=== PATIENT | female | born 1990 | race Caucasian/White ===

== ENCOUNTER 2016-04-04 19:35 | Emergency (ER) | payer OTHER ==
[2016-04-04 20:10] VITALS: BP 119/57; PULSE 69; TEMP 97.9; BMI 23.5
--- NOTE | 2016-04-04 20:18 | PDOC ---
History of Present Illness - General History Source: Patient Exam Limitations: No Limitations - History of Present Illness Initial Comments: 04/04/16 20:33 Patient is a 26 year old female, , with significant past medical history of diverticulosis with diverticulitis who presents to the ED with nausea and vomiting for 1 week and positive home test. Patient also reports suprapubic pain that is sharp in nature. Patient notes that her LMP was . She She denies fever, chills, cough, diarrhea, constipation, headache, chest pain or SOB. PCP - Dr. Fagan <Kym Soria - Last Filed: 04/05/16 00:00> <Rosario Lubin - Last Filed: 04/06/16 01:48> - General Chief Complaint: Pain, Acute Stated Complaint: ABDOMINAL PAIN Time Seen by Provider: 04/04/16 20:18 Past History <Kym Soria - Last Filed: 04/05/16 00:00> - Past Medical History GI Disorders: Yes (DIVERTICULOSIS) - Surgical History Abdominal Surgery: Yes - Immunization History Immunization Up to Date: Yes - Psycho/Social/Smoking Cessation Hx Anxiety: No Suicidal Ideation: No Smoking History: Never smoked Have you smoked in the past 12 months: Yes Number of Cigarettes Smoked Daily: 0 If you are a former smoker, when did you quit?: 3 DAYS AGO Information on smoking cessation initiated: No Hx Alcohol Use: No Drug/Substance Use Hx: No Substance Use Type: None <Rosario Lubin - Last Filed: 04/06/16 01:48> - Past Medical History Allergies/Adverse Reactions: Allergies Allergy/AdvReac Type Severity Reaction Status Date / Time No Known Allergies Allergy Verified 04/04/16 20:03 Home Medications: Ambulatory Orders NK [No Known Home Medication] 04/04/16 Review of Systems - Review of Systems Able to Perform ROS?: Yes Comments:: 04/04/16 20:33 CONSTITUTIONAL: Absent: fever, no chills, no fatigue EYES: Absent: visual changes ENT: Absent: ear pain, no sore throat CARDIOVASCULAR: Absent: chest pain, no palpitations RESPIRATORY: Absent: cough, no SOB GI: Present: abdominal pain, nausea, vomiting Absent: no constipation, no diarrhea GENITOURINARY: Absent: dysuria, no frequency, no hematuria MUSCULOSKELETAL: Absent: back pain, no arthralgia, no myalgia SKIN: Absent: rash NEURO: Absent: headache <Kym Soria - Last Filed: 04/05/16 00:00> *Physical Exam - Vital Signs Last Vital Signs Temp Pulse Resp BP Pulse Ox 97.9 F 69 18 119/57 100 04/04/16 20:04 04/04/16 20:04 04/04/16 20:04 04/04/16 20:04 04/04/16 20:04 - Physical Exam Comments: 04/04/16 20:34 GENERAL: Well-appearing, well-nourished. No apparent distress. HEENT: Normocephalic, atraumatic. PERRL, EOM intact. CARDIOVASCULAR: Normal S1, S2. Regular rate and rhythm. PULMONARY: Clear to auscultation bilaterally. ABDOMEN: +suprapubic tenderness. Soft, non-distended. EXTREMITIES: Normal ROM in all four extremities. No gross deformities. SKIN: Warm, dry. No rash NEUROLOGICAL: No focal neurological deficits. <Kym Soria - Last Filed: 04/05/16 00:00> - Vital Signs Last Vital Signs Temp Pulse Resp BP Pulse Ox 97.9 F 69 18 119/57 100 04/04/16 20:04 04/04/16 20:04 04/04/16 20:04 04/04/16 20:04 04/04/16 20:04 <Rosario Lubin - Last Filed: 04/06/16 01:48> ED Treatment Course - LABORATORY CBC & Chemistry Diagram: 04/04/16 20:57 04/04/16 20:57 - RADIOLOGY Radiology Studies Ordered: 04/05/16 00:00 EXAM: Ultrasound first trimester and pelvic duplex FINDINGS: Ultrasound :Uterus is anteverted and measures 9.7centimeters in length. The endometrium is 8millimeters in thickness which is normal. No identified. The right ovary measures 3.0centimeters in length, appears normal and demonstrates normal flow. Left ovary measures 2.8centimeters in length appears normal demonstrates normal flow. There is no significant free fluid. Pelvic duplex: There is normal arterial and venous flow in both ovaries. IMPRESSION: Normal exam without an IUP identified. Differential diagnosis includes early normal , miscarriage andectopic , which should be further evaluated with followup sonography and correlation to hCG levels. <Kym Soria - Last Filed: 04/05/16 00:00> - LABORATORY CBC & Chemistry Diagram: 04/04/16 20:57 04/04/16 20:57 <Rosario Lubin - Last Filed: 04/06/16 01:48> Medical Decision Making - Medical Decision Making 04/05/16 01:17 26-year-old female presents because of pelvic pain and reports a positive home test -the pt had been seen in our ER on Feb 14 2016 and at that time had a negative test -she denies any vaginal bleeding -her LMP was Mar 01 04/05/16 01:20 her bhcg was about 740 -her transvagianl ultrasound showed normal ovaries but did not see a IUP -discussed w pt concern for an ectopic and told her she needed to repeat beta-hCG in 48 hours and have a repeat ultrasound IMP- early IUP,ectopic preg 04/05/16 01:22 04/06/16 01:47 <Rosario Lubin - Last Filed: 04/06/16 01:48> *DC/Admit/Observation/Transfer - Attestations Scribe Attestion: 04/04/16 20:35 Documentation prepared by LANA Bartholomew, acting as medical office rep for Rosario Lubin MD. <Kym Soria - Last Filed: 04/05/16 00:00> <Rosario Lubin - Last Filed: 04/06/16 01:48> Diagnosis at time of Disposition: - Discharge Dispostion Disposition: HOME Condition at time of disposition: Stable - Referrals Referrals: Sameera Fagan [Primary Care Provider] - - Patient Instructions Printed Discharge Instructions: DI for -- Discomforts and Remedies, DI for Abdominal Pain -- Early Additional Instructions: THERE IS CONCERN FOR AN ECTOPIC SO YOU MUST RETURN ON TUESDAY FOR REPEAT BHCG AND PELVIC ULTRASOUND
[2016-04-04 21:01] LABS: BASOPHIL 1.3 % (0-2.0); EOSINOPHIL 1.2 % (0-4.5); MCH 27.9 pg (25.7-33.7); MCHC 32.5 g/dl (32.0-36.0); MEAN CELL VOLUME 85.8 fl (80-96); MEAN PLT VOLUME 7.6 fl (7.5-11.1); NEUTROPHILS 49.8 % (42.8-82.8); PLATELET COUNT 275 K/MM3 (134-434); RDW 14.9 % (11.6-15.6); WHITE BLOOD COUNT 7.6 K/mm3 (4.0-10.0)
[2016-04-04 21:02] LABS: URINE APPEARANCE CLEAR; URINE BILIRUBIN NEGATIVE (NEGATIVE); URINE BLOOD NEGATIVE (NEGATIVE); URINE COLOR LTYELLOW; URINE GLUCOSE (UA) NEGATIVE (NEGATIVE); URINE KETONE NEGATIVE (NEGATIVE); URINE LEUK ESTERASE NEGATIVE (NEGATIVE); URINE NITRITE NEGATIVE (NEGATIVE); URINE PROTEIN NEGATIVE (NEGATIVE); URINE UROBILINOGEN NEGATIVE E.U./dl (0.2-1.0)
[2016-04-04 21:24] LABS: ALBUMIN 3.9 g/dl (3.4-5.0); ANION GAP 8 (8-16); BILIRUBIN,TOTAL 0.3 mg/dL (0.2-1.0); CO2 25 mmol/L (21-32); CREATININE 0.6 mg/dL (0.55-1.02); GLUCOSE,RANDOM 89 mg/dL (74-106); SGOT/AST 10 U/L (15-37); SGPT/ALT 22 U/L (12-78)
[2016-04-04 21:26] LABS: ALK PHOS 67 U/L (45-117)
[2016-04-04] MEDS ORDERED: SODIUM CHLORIDE 1,000 ML IV STA (21:50)
== END 2016-04-05 00:30 | disposition home or self-care (01) ==
LOC: JER 19:35
PROC: 3E0337Z Introduction of Electrolytic and Water Balance Substance into Peripheral Vein, Percutaneous Approach (ICD-10-PCS; principal; 2016-04-04)
DX: O26.891 Other specified pregnancy related conditions, first trimester (principal); R10.2 Pelvic and perineal pain; Z3A.00 Weeks of gestation of pregnancy not specified
CPT/HCPCS: 36415; 76817-TC; 80053; 81003; 84702; 84703; 85025; 96360; 99282-25

== ENCOUNTER 2016-04-06 10:40 | Emergency (ER) | payer OTHER ==
[2016-04-06 10:47] VITALS: BP 142/73; PULSE 80; TEMP 98; BMI 23.5
--- NOTE | 2016-04-06 11:53 | PDOC ---
History of Present Illness - General Chief Complaint: Pain Stated Complaint: PELVIC USS (RETURNING PATIENT) Time Seen by Provider: 04/06/16 11:49 History Source: Patient Exam Limitations: No Limitations - History of Present Illness Initial Comments: CHIEF COMPLAINT: 26 y/o female, with LMP 03/01/16 here for repeat beta and ultrasound. HISTORY OF PRESENT ILLNESS: The patient was seen on 04/04 in the main ER for abdominal pain. An ultrasound was performed but no confirmed and there was concern for ectopic. She was instructed to return today to have repeat blood work and ultrasound. THe patient denies abd pain, back pain, vaginal bleeding, abnormal vaginal discharge. Vital signs on arrival are within normal limits. REVIEW OF SYSTEMS: GENERAL/CONSTITUTIONAL: No fever/chills. No weakness. No weight change. HEAD, EYES, EARS, NOSE AND THROAT: No change in vision. No ear pain or discharge. No sore throat. GASTROINTESTINAL: No abd pain, nausea, vomiting, diarrhea. GENITOURINARY: No dysuria, frequency, or change in urination. No abnormal vaginal discharge or bleeding. MUSCULOSKELETAL: No joint or muscle swelling or pain. No neck or back pain. SKIN: No rash or easy bruising. NEUROLOGIC: No headache, vertigo, loss of consciousness, or loss of sensation. PHYSICAL EXAM: GENERAL: The patient is awake, alert, and fully oriented, in no acute distress. HEAD: Normal with no signs of trauma. EYES: Pupils equal, round and reactive to light, extraocular movements intact, sclera anicteric, conjunctiva clear. ABDOMINAL: No TTP. EXTREMITIES: Normal range of motion, no edema. NEUROLOGICAL: Normal speech, normal gait. PSYCH: Normal mood, normal affect. SKIN: Warm, Dry, normal turgor, no rashes or lesions noted. Past History - Past Medical History Allergies/Adverse Reactions: Allergies Allergy/AdvReac Type Severity Reaction Status Date / Time No Known Allergies Allergy Verified 04/06/16 10:43 Home Medications: Ambulatory Orders NK [No Known Home Medication] 04/04/16 GI Disorders: Yes (DIVERTICULOSIS) - Surgical History Abdominal Surgery: Yes - Immunization History Immunization Up to Date: Yes - Psycho/Social/Smoking Cessation Hx Anxiety: No Suicidal Ideation: No Smoking History: Never smoked Have you smoked in the past 12 months: Yes Number of Cigarettes Smoked Daily: 0 If you are a former smoker, when did you quit?: 3 DAYS AGO Information on smoking cessation initiated: Yes 'Breaking Loose' booklet given: 04/06/16 Hx Alcohol Use: No Drug/Substance Use Hx: No Substance Use Type: None *Physical Exam - Vital Signs Last Vital Signs Temp Pulse Resp BP Pulse Ox 98.0 F 80 18 142/73 100 04/06/16 10:44 04/06/16 10:44 04/06/16 10:44 04/06/16 10:44 04/06/16 10:44 Medical Decision Making - Medical Decision Making A/P: 26 y/o female here for repeat beta and ultrasound to confirm . Plan is as follows: 1. HCG 2. Transvaginal ultrasound. The hcg doubled from 756 to 1545 from 04/04 to 04/06. Transvaginal Ultrasound IMPRESSION: Tiny intrauterine gestational sac like structure with estimated gestational age of 4 weeks 6 days. No pole is identified. Correlation with serial quantitative serum beta-HCG and follow up ultrasound in 1 week is recommended. The patient was given all of her results and instructed to f/u with her BED OPERATOR, who she states she has an appointment with this Tuesday. The patient was instructed to return to the ER with any worsening or concerning symptoms. The patient verbalizes understanding of all instructions, has no further questions and is awaiting discharge. *DC/Admit/Observation/Transfer Diagnosis at time of Disposition: - Discharge Dispostion Disposition: HOME Condition at time of disposition: Good - Referrals Referrals: Sameera Fagan [Primary Care Provider] - - Patient Instructions Additional Instructions: Discharge Instructions: -Your beta hcg was 756 on 04/04/16 and 1545 on 04/06/16. -Your ultrasound showed a gestational sac -Please keep your scheduled follow up appointment for Tuesday -Return to the ER with any worsening or concerning symptoms.
== END 2016-04-06 15:00 | disposition home or self-care (01) ==
LOC: JERFT 10:40
DX: Z32.01 Encounter for pregnancy test, result positive (principal)
CPT/HCPCS: 36415; 76817-TC; 84702; 99281-25

== ENCOUNTER 2016-06-24 19:55 | Emergency (ER) | payer OTHER ==
[2016-06-24 20:06] VITALS: BP 139/76; PULSE 93; TEMP 98.2; BMI 25.0
--- NOTE | 2016-06-24 20:48 | PDOC ---
History of Present Illness - General History Source: Patient Exam Limitations: No Limitations - History of Present Illness Initial Comments: 06/24/16 20:51 The patient is a 26 year old female (17 weeks ) with significant past medical history of recent diagnose of diverticulitis (02/2016) who presents to the ED with 1 day of suprapubic pain. Patient reports nausea and vomiting x1 earlier today, however, she believes this is related to her morning sickness. No diarrhea. No vaginal bleeding or discharge. The patient denies fever, chills, cough, SOB, chest pain, and palpitations. The patient denies dysuria, hematuria, urgency, and frequency. Allergies: NKDA Social History: No alcohol, tobacco, or drug use reported. Past Surgical History: hernia repair PCP: Dr. Sameera Fagan <Mel Ramirez - Last Filed: 06/24/16 20:51> - General History Source: Patient <Rick Reynoso - Last Filed: 06/24/16 22:26> - General Chief Complaint: Pain Stated Complaint: STOMACH PAIN/17 WKS Time Seen by Provider: 06/24/16 20:34 Past History <Mel Ramirez - Last Filed: 06/24/16 20:51> - Past Medical History GI Disorders: Yes (DIVERTICULOSIS) - Surgical History Abdominal Surgery: Yes - Immunization History Immunization Up to Date: Yes - Psycho/Social/Smoking Cessation Hx Anxiety: No Suicidal Ideation: No Smoking History: Never smoked Have you smoked in the past 12 months: No Number of Cigarettes Smoked Daily: 0 If you are a former smoker, when did you quit?: 3 DAYS AGO Information on smoking cessation initiated: No 'Breaking Loose' booklet given: 04/06/16 Hx Alcohol Use: No Drug/Substance Use Hx: No Substance Use Type: None <Rick Reynoso - Last Filed: 06/24/16 22:26> - Past Medical History Allergies/Adverse Reactions: Allergies Allergy/AdvReac Type Severity Reaction Status Date / Time No Known Allergies Allergy Verified 06/24/16 20:03 Home Medications: Ambulatory Orders Cephalexin Monohydrate [Keflex -] 500 mg PO BID #14 capsule 06/24/16 Metoclopramide HCl [Reglan -] 10 mg PO TID #30 tablet 06/24/16 [id number]/Iron Fumarate/FA/Dss [ 19 Tablet] 1 each PO DAILY 06/24/16 Review of Systems - Review of Systems Able to Perform ROS?: Yes Comments:: 06/24/16 20:51 CONSTITUTIONAL: Absent: fever, no chills, no fatigue EYES: Absent: visual changes ENT: Absent: ear pain, no sore throat CARDIOVASCULAR: Absent: chest pain, no palpitations RESPIRATORY: Absent: cough, no SOB GI: +suprapubic tenderness, nausea, vomiting Absent: no constipation, no diarrhea GENITOURINARY: Absent: dysuria, no frequency, no hematuria MUSCULOSKELETAL: Absent: back pain, no arthralgia, no myalgia SKIN: Absent: rash NEURO: Absent: headache <Mel Raimrez - Last Filed: 06/24/16 20:51> *Physical Exam - Vital Signs Last Vital Signs Temp Pulse Resp BP Pulse Ox 98.2 F 93 H 14 139/76 98 06/24/16 20:04 06/24/16 20:04 06/24/16 20:04 06/24/16 20:04 06/24/16 20:04 - Physical Exam Comments: 06/24/16 20:52 GENERAL: Well-appearing, well-nourished. No apparent distress. HEENT: Normocephalic, atraumatic. PERRL, EOM intact. CARDIOVASCULAR: Normal S1, S2. Regular rate and rhythm. PULMONARY: Clear to auscultation bilaterally. ABDOMEN: Gravid, suprapubic tenderness. No rebound or guarding. EXTREMITIES: Normal ROM in all four extremities. No gross deformities. SKIN: Warm, dry. No rash NEUROLOGICAL: No focal neurological deficits. <Mel Ramirez - Last Filed: 06/24/16 20:51> - Vital Signs Last Vital Signs Temp Pulse Resp BP Pulse Ox 98.2 F 93 H 14 139/76 98 06/24/16 20:04 06/24/16 20:04 06/24/16 20:04 06/24/16 20:04 06/24/16 20:04 <Rick Reynoso - Last Filed: 06/24/16 22:26> ED Treatment Course - LABORATORY CBC & Chemistry Diagram: 06/24/16 20:30 06/24/16 20:30 <Mel Ramirez - Last Filed: 06/24/16 20:51> - LABORATORY CBC & Chemistry Diagram: 06/24/16 20:30 06/24/16 20:30 <Rick Reynoso - Last Filed: 06/24/16 22:26> Medical Decision Making - Medical Decision Making 06/24/16 22:25 Dr. Reynoso: The scribe's documentation has been prepared under my direction and personally reviewed by me in its entirery. I confirm that the note above accurately reflects all work, treatment, procedures, and medical decision making performed by me. Patient 16 which on ultrasound. Patient found to have UTI on urinalysis. 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 machine operator <Rick Reynoso - Last Filed: 06/24/16 22:26> *DC/Admit/Observation/Transfer - Attestations Scribe Attestion: 06/24/16 20:52 Documentation prepared by Mel Ramirez, acting as biomedical engineer for Rick Reynoso MD <Mel Ramirez - Last Filed: 06/24/16 20:51> - Discharge Dispostion Admit: No <Rick Reynoso - Last Filed: 06/24/16 22:26> Diagnosis at time of Disposition: Urinary tract infection, Diverticulitis - Discharge Dispostion Disposition: HOME Condition at time of disposition: Stable - Referrals Referrals: Sameera Fagan [Primary Care Provider] - - Patient Instructions Printed Discharge Instructions: DI for Urinary Tract Infection (UTI)
[2016-06-24 20:50] LABS: BASOPHIL 0.2 % (0-2.0); EOSINOPHIL 0.8 % (0-4.5); MCHC 33.4 g/dl (32.0-36.0); MEAN PLT VOLUME 7.1 fl (7.5-11.1); NEUTROPHILS 69.1 % (42.8-82.8); PLATELET COUNT 252 K/MM3 (134-434); RDW 14.1 % (11.6-15.6)
[2016-06-24 21:03] LABS: URINE APPEARANCE CLOUDY; URINE BILIRUBIN NEGATIVE (NEGATIVE); URINE BLOOD NEGATIVE (NEGATIVE); URINE COLOR LTYELLOW; URINE GLUCOSE (UA) NEGATIVE (NEGATIVE); URINE KETONE NEGATIVE (NEGATIVE); URINE NITRITE NEGATIVE (NEGATIVE); URINE PROTEIN NEGATIVE (NEGATIVE); URINE UROBILINOGEN NEGATIVE E.U./dl (0.2-1.0)
[2016-06-24 21:04] LABS: URINE LEUK ESTERASE 2+ (NEGATIVE)
[2016-06-24 21:06] LABS: URINE BACTERIA RARE /hpf (NONE SEEN); URINE HYALINE CAST 9 /lpf; URINE RBC 5 /hpf (0-3); URINE WBC 8 /hpf (3-5)
[2016-06-24 21:15] LABS: ALBUMIN 3.2 g/dl (3.4-5.0); ANION GAP 12 (8-16); BILIRUBIN,TOTAL 0.1 mg/dL (0.2-1.0); CALCIUM 8.8 mg/dL (8.5-10.1); CO2 23 mmol/L (21-32); COCKROFT - GAULT 198.7725; CREATININE 0.5 mg/dL (0.55-1.02); GLUCOSE,RANDOM 84 mg/dL (74-106); SGOT/AST 13 U/L (15-37); SGPT/ALT 17 U/L (12-78)
[2016-06-24 21:31] LABS: ALK PHOS 65 U/L (45-117)
[2016-06-24] MEDS ORDERED: METOCLOPRAMIDE HCL 10 MG TABLET (FP) PO ONE ×2 (22:25→22:52)
[2016-06-24] MEDS ORDERED: CEPHALEXIN MONOHYDRATE 500 MG CAPSULE (UD) PO ONE (22:25)
[2016-06-24] MEDS ORDERED: CEPHALEXIN MONOHYDRATE 250 MG CAPSULE (FP) ONE (22:51)
== END 2016-06-24 22:59 | disposition home or self-care (01) ==
LOC: JER 19:55 → JERFT 19:55 → JER 22:59
DX: O23.32 Infections of other parts of urinary tract in pregnancy, second trimester (principal); Z3A.17 17 weeks gestation of pregnancy
CPT/HCPCS: 36415; 76815-TC; 80053; 81003; 81015; 84702; 84703; 85025; 87086; 99281-25; 99284-25

== ENCOUNTER 2016-12-06 12:50 | Inpatient (IN) | payer OTHER ==
[2016-12-06] MEDS ORDERED: CITRIC ACID/SODIUM CITRATE 30 ML UNIT-DOSE CUP PO ONE (13:00)
[2016-12-06] MEDS ORDERED: ELECTROLYTE-148 SOLN 500 ML IV ONE (13:00)
[2016-12-06 13:18] VITALS: BMI 27.7
[2016-12-06] MEDS: ELECTROLYTE-148 SOLN 1,000 ML IV SCH (13:30)
[2016-12-06] MEDS ORDERED: METHYLERGONOVINE MALEATE 0.2 MG/1 ML AMP IM PRN (14:56)
[2016-12-06] MEDS ORDERED: BENZOCAINE 20% 57 GM BOTTLE TP PRN (14:56)
[2016-12-06] MEDS ORDERED: BENZOCAINE 28 GM HEMORRHOIDAL OINTMENT PR PRN (14:56)
[2016-12-06] MEDS ORDERED: WITCH HAZEL 50% (TUCKS) 40 PAD/JAR PAD TP PRN (14:56)
[2016-12-06] MEDS ORDERED: diphenhydrAMINE HCL 25 MG CAPSULE (FP) PO PRN (14:56)
[2016-12-06] MEDS ORDERED: OXYTOCIN 20 UNITS in 0.9% NS 1,000 ML IV SCH (15:00)
[2016-12-06] MEDS ORDERED: ONDANSETRON 4 MG/2 ML VIAL IVPB PRN (15:03)
[2016-12-06] MEDS ORDERED: morphine SULFATE/Preservative Free 0.5 MG/ML (1cc Syringe) SPIN ONE (15:03)
--- NOTE | 2016-12-06 15:04 | HP ---
Past Medical History - Primary Care Physician PCP:: Glenroy Duggan - Admission Chief Complaint: 39 weeks, previous c/s , request of repeat c/s History of Present Illness: 26 yo r 39 weeks with one previous c/s ,requesting repeat c/s, risks discussed, expalined and encouraged , declined History Source: Patient Limitations to Obtaining History: No Limitations - Past Medical History ...: 3 ...Para: 1 ...Term: 1 ...: 0 ...Spon : 0 ...Induced : 1 ...Multiple Gestation: 0 ...LMP: 03/01/16 ... Weeks Gestation by Dates: 39.0 ...EDC by Dates: 12/12/16 ...EDC by Sono: 12/12/16 - Past Surgical History Past Surgical History: Yes: Hx Myomectomy: No Hx Transabdominal Cerclage: No - Smoking History Smoking history: Never smoked Have you smoked in the past 12 months: No Aproximately how many cigarettes per day: 0 If you are a former smoker, when did you quit?: 3 DAYS AGO - Alcohol/Substance Use Hx Alcohol Use: No - Social History Usual Living Arrangement: Yes: With Spouse History of Recent Travel: No Home Medications - Allergies Allergies/Adverse Reactions: Allergies Allergy/AdvReac Type Severity Reaction Status Date / Time No Known Allergies Allergy Verified 12/06/16 13:21 - Home Medications Home Medications: Ambulatory Orders Abl024/Iron Fumarate/FA/Dss [ 19 Tablet] 1 each PO DAILY 06/24/16 Review of Systems - Review of Systems Constitutional: reports: No Symptoms Eyes: reports: No Symptoms HENT: reports: No Symptoms Neck: reports: No Symptoms Cardiovascular: reports: No Symptoms Respiratory: reports: No Symptoms Gastrointestinal: reports: No Symptoms Genitourinary: reports: No Symptoms Musculoskeletal: reports: No Symptoms Integumentary: reports: No Symptoms Neurological: reports: No Symptoms Endocrine: reports: No Symptoms Hematology/Lymphatic: reports: No Symptoms Psychiatric: reports: No Symptoms Physical Exam - Maternity Vital Signs: Vital Signs Temperature 98.7 F 12/06/16 13:10 Pulse Rate 81 12/06/16 13:10 Respiratory Rate 20 12/06/16 13:10 Blood Pressure 120/67 12/06/16 13:10 O2 Sat by Pulse Oximetry (%) Constitutional: Yes: Well Nourished, No Distress, Calm Eyes: Yes: WNL, Conjunctiva Clear, EOM Intact HENT: Yes: WNL, Atraumatic, Normocephalic Neck: Yes: WNL, Supple, Trachea Midline Cardiovascular: Yes: WNL, Regular Rate and Rhythm Breast(s): Yes: WNL - Abdominal Exam/OB Fundal Height: 40 Number of Fetuses: Single Presentation: Vertex Contractions: No Intensity: Unaware Monitor Mode: External Heart Rate Location: [facility] Category: I Accelerations: Uniform Decelerations: None - Vaginal Exam/OB Vaginal Bleediing: No Speculum Exam: No Presentation: Vertex/Position Station: -3 - Physical Exam Edema: LLE: Trace, RLE: Trace Deep Tendon Reflex Grade: Normal +2 Hemorrhage Risk Assessment - Risk Factors Medium Risk Factors: Yes: Prior , uterine surgery,or multiple laparotomies Risk Score: 1 Risk Level: Medium Risk Problem List - Problems (1) with 39 completed weeks gestation Code(s): Z3A.39 - 39 WEEKS GESTATION OF (2) Previous section complicating Code(s): O34.219 - MATERNAL CARE FOR UNSP TYPE SCAR FROM PREVIOUS DEL Assessment/Plan repeat c/s rba discussed
[2016-12-06] MEDS: IBUPROFEN 800 MG/8 ML IJ IVPB PRN ×2 (15:44→20:18)
[2016-12-06] MEDS: CEFAZOLIN 1 GM/D5W 50 ML IVPB SCH (19:37)
[2016-12-07] MEDS: CEFAZOLIN 1 GM/D5W 50 ML IVPB SCH (01:31)
[2016-12-07 06:59] LABS: BASOPHIL 0.2 % (0-2.0); MCH 29.1 pg (25.7-33.7); MCHC 33.3 g/dl (32.0-36.0); MEAN CELL VOLUME 87.3 fl (80-96); MEAN PLT VOLUME 7.5 fl (7.5-11.1); NEUTROPHILS 70.9 % (42.8-82.8); PLATELET COUNT 159 K/MM3 (134-434); RDW 13.7 % (11.6-15.6); WHITE BLOOD COUNT 9.4 K/mm3 (4.0-10.0)
[2016-12-07] MEDS: IBUPROFEN 600 MG TABLET (FP) PO PRN ×4 (09:50→22:05)
[2016-12-07] MEDS: oxyCODONE HCL 5 MG TABLET PO PRN ×4 (09:50→22:04)
[2016-12-07] MEDS: SIMETHICONE 80 MG TAB.CHEW (FP) PO PRN ×4 (09:51→22:06)
[2016-12-07] MEDS: ENOXAPARIN NA (PORCINE) 40 MG/0.4 ML DISP.SYRIN SQ SCH (10:57)
[2016-12-07] MEDS: DEXTROSE 5%-LACTATED RINGERS 1,000 ML IV SCH (12:48)
--- NOTE | 2016-12-07 13:18 | OP ---
DATE OF OPERATION: 12/06/2016 PREOPERATIVE DIAGNOSES: , 39 weeks; previous section, requests of repeat section. POSTOPERATIVE DIAGNOSES: , 39 weeks; previous section, requests of repeat section. PROCEDURE: Repeat low-segment transverse section. SURGEON: Glenroy Duggan MD OIL BAY TECHNICIAN: ISABEL Mcpherson ANESTHESIA: Spinal. ANESTHESIOLOGIST: Destinee Roach MD ESTIMATED BLOOD LOSS: 500 mL FINDING: A live baby, Apgars 9 and 9, ROT position. DESCRIPTION OF OPERATIVE PROCEDURE: Patient was taken to the operating room. Under adequate spinal anesthesia, abdomen and perineum were prepped and draped. Pfannenstiel abdominal skin incision was made. Abdominal wall was cut layer by layer until peritoneum was exposed and incised. Upon entering the abdominal cavity, lower uterine segment was identified and uterovesical fold of peritoneum established. Bladder was pushed down. Then, with the lower blade of the Siri retractor in the pelvis, a low transverse uterine incision was made. Incision extended laterally. Amniotic sac was entered. Clear fluid. Head delivered. Nasopharynx was suctioned. Live baby delivered without any difficulty. Placenta was delivered manually. Uterine cavity was cleaned of all remaining tissue. Uterine incision was closed in 2 layers, first layer with 0 Biosyn, the second layer with 0 Biosyn imbricating the first layer. Bladder flap was closed with 0 Biosyn continuous suture. Both tubes and ovaries checked, were normal. No active bleeding was seen. All the lap pads, sponge, and instrument counts were correct. Then, peritoneum was closed with 0 Biosyn continuous suture; subcutaneous fat with interrupted suture of 0 Biosyn. Fascia was closed with 0 Biosyn continuous suture, subcutaneous fat with interrupted suture of 0 Biosyn, and the skin was closed with chad. The patient tolerated the procedure well, left the OR in good condition. Promise [id number]
[2016-12-07] MEDS: ELECTROLYTE-148 SOLN 1,000 ML IV SCH (13:54)
[2016-12-07] MEDS ORDERED: BISACODYL 10 MG SUPP.RECT RC PRN (14:56)
--- NOTE | 2016-12-07 18:09 | PN ---
Progress Note (short form) - Note Progress Note: ANESTHESIA POSTOP: 26 yo female POD#1 s/p c/section. Patient doing well. Ambulating and tolerating PO. Pain being treated. No headache.
[2016-12-08] MEDS: ACETAMINOPHEN 325 MG TABLET (FP) PO PRN (01:36)
[2016-12-08] MEDS: oxyCODONE HCL 5 MG TABLET PO PRN ×5 (02:27→18:37)
[2016-12-08] MEDS: SIMETHICONE 80 MG TAB.CHEW (FP) PO PRN ×3 (06:20→14:36)
[2016-12-08] MEDS: IBUPROFEN 600 MG TABLET (FP) PO PRN ×4 (06:20→18:36)
[2016-12-08] MEDS: ENOXAPARIN NA (PORCINE) 40 MG/0.4 ML DISP.SYRIN SQ SCH (09:56)
--- NOTE | 2016-12-08 11:38 | PN ---
Post Progress Note - Subjective Subjective: c/o pain , scale 9/10. voiding without difficulty Post Day: 2 Type of Delivery: Repeat C/S Vital Signs: Vital Signs Temperature 98.3 F 12/07/16 22:00 Pulse Rate 57 L 12/07/16 22:00 Respiratory Rate 20 12/07/16 22:00 Blood Pressure 107/57 12/07/16 22:00 O2 Sat by Pulse Oximetry (%) 100 12/07/16 09:00 Breast Exam: Yes: Soft, Other (not BF ). No: Engorged Uterus: Yes: Fundus Firm, Fundus below umbilicus, Non-tender Incision: Yes: [place] intact. No: Redness, Oozing Abdomen/GI: Yes: Abdomen soft, Tender, Passing flatus (bm not done ), Tolerating PO (tolerating diet ). No: Abdominal Distention Lochia: Yes: Rubra Lochia, amount: Moderate Extremities: Yes: Calves non-tender Perineum: Yes: Intact Activity: Ambulating - Labs Labs: CBC WBC 9.4 K/mm3 (4.0-10.0) 12/07/16 06:25 RBC 2.78 M/mm3 (3.60-5.2) L D 12/07/16 06:25 Hgb 8.1 GM/dL (10.7-15.3) L D 12/07/16 06:25 Hct 24.3 % (32.4-45.2) L D 12/07/16 06:25 MCV 87.3 fl (80-96) 12/07/16 06:25 MCH 29.1 pg (25.7-33.7) 12/07/16 06:25 MCHC 33.3 g/dl (32.0-36.0) 12/07/16 06:25 RDW 13.7 % (11.6-15.6) 12/07/16 06:25 Plt Count 159 K/MM3 (134-434) D 12/07/16 06:25 MPV 7.5 fl (7.5-11.1) 12/07/16 06:25 Neutrophils % 70.9 % (42.8-82.8) 12/07/16 06:25 Lymphocytes % 18.3 % (8-40) 12/07/16 06:25 Monocytes % 10.6 % (3.8-10.2) H 12/07/16 06:25 Eosinophils % 0.0 % (0-4.5) D 12/07/16 06:25 Basophils % 0.2 % (0-2.0) 12/07/16 06:25 Assessment/Plan anemia stable plan encourage ambulation, po fluids fleets enema prn
--- NOTE | 2016-12-08 12:48 | PATH ---
Surgical Pathology Report Patient Name: LORETTA PILLAI [facility]. Rec. 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 Specimen(s) Received PLACENTA Clinical History section x1 Repeat Final Diagnosis PLACENTA, DELIVERY: THIRD TRIMESTER PLACENTA WITH CIRCUMMARGINATE INSERTION OF MEMBRANES AND THREE-VESSEL UMBILICAL CORD. Electronically Signed Mil Huber M.D. Gross Description The specimen is received fresh labeled placenta and is a 516 gram, 17 x 15 x 2.5 cm. placenta with attached membranes and umbilical cord. The attached membranes are glistening and translucent and insert in a circummarginate manner across one quarter of the placental disc, a 1.5 cm from the central margin. The umbilical cord measures 46 cm. in length and averages 1.4 cm. in diameter. The cord inserts eccentrically, 3 cm. to the nearest margin. No true knots or strictures are identified. Cut surface of the umbilical cord reveals 3 vessels. The surface is clayton-blue with minimal fibrin deposition and appropriate caliber vessels. The maternal surface is lobulated and appears complete with no adherent blood clots or areas of thinning. Sectioning reveals red-brown, spongy parenchyma. No lesions are identified. Director Of Employee Development sections are submitted in three cassettes as follows: 1- membrane rolls and umbilical cord; 2-3- full thickness sections of placenta. [facility]/12/07/2016
[2016-12-08] MEDS: ELECTROLYTE-148 SOLN 1,000 ML IV SCH (14:34)
[2016-12-08] MEDS: DEXTROSE 5%-LACTATED RINGERS 1,000 ML IV SCH (18:59)
[2016-12-08] MEDS: FERROUS SO4 325 MG TABLET (FP) PO SCH (21:02)
[2016-12-08] MEDS: SENNOSIDES/DOCUSATE COMBO (SENNA PLUS) TABLET (UD) PO PRN (21:02)
[2016-12-09] MEDS: SIMETHICONE 80 MG TAB.CHEW (FP) PO PRN ×3 (00:02→12:35)
[2016-12-09] MEDS: oxyCODONE HCL 5 MG TABLET PO PRN ×3 (00:03→14:15)
[2016-12-09] MEDS: IBUPROFEN 600 MG TABLET (FP) PO PRN ×3 (00:04→20:23)
[2016-12-09] MEDS: ACETAMINOPHEN 325 MG TABLET (FP) PO PRN ×3 (07:17→20:22)
[2016-12-09] MEDS: FERROUS SO4 325 MG TABLET (FP) PO SCH ×2 (07:17→17:02)
[2016-12-09 07:50] LABS: BASOPHIL 0.6 % (0-2.0); EOSINOPHIL 1.8 % (0-4.5); MCHC 32.8 g/dl (32.0-36.0); MEAN CELL VOLUME 88.4 fl (80-96); MEAN PLT VOLUME 7.7 fl (7.5-11.1); NEUTROPHILS 51.9 % (42.8-82.8); PLATELET COUNT 157 K/MM3 (134-434); RDW 14.1 % (11.6-15.6); WHITE BLOOD COUNT 5.6 K/mm3 (4.0-10.0)
[2016-12-09] MEDS: ENOXAPARIN NA (PORCINE) 40 MG/0.4 ML DISP.SYRIN SQ SCH (09:21)
[2016-12-09] MEDS: PRENATAL VITAMINS W/ FOLIC ACID TABLET (FP) PO SCH (09:21)
--- NOTE | 2016-12-09 10:16 | PN ---
Post Progress Note - Subjective Subjective: 26 yo Para 2 status post repeat , seen and evaluated. Doing well, no complaints. Post Day: 3 Type of Delivery: Repeat C/S Vital Signs: Vital Signs Temperature 97.7 F 12/08/16 22:00 Pulse Rate 82 12/08/16 22:00 Respiratory Rate 20 12/08/16 22:00 Blood Pressure 120/69 12/08/16 22:00 O2 Sat by Pulse Oximetry (%) 100 12/07/16 09:00 Breast Exam: Yes: Soft Uterus: Yes: Fundus Firm Incision: Yes: Wellborn intact Abdomen/GI: Yes: Abdomen soft, Tolerating PO Lochia: Yes: Rubra Lochia, amount: Small Extremities: Yes: Calves non-tender Perineum: Yes: Intact Activity: Ambulating - Labs Labs: CBC WBC 5.6 K/mm3 (4.0-10.0) D 12/09/16 06:30 RBC 2.92 M/mm3 (3.60-5.2) L 12/09/16 06:30 Hgb 8.5 GM/dL (10.7-15.3) L 12/09/16 06:30 Hct 25.8 % (32.4-45.2) L 12/09/16 06:30 MCV 88.4 fl (80-96) 12/09/16 06:30 MCH 29.0 pg (25.7-33.7) 12/09/16 06:30 MCHC 32.8 g/dl (32.0-36.0) 12/09/16 06:30 RDW 14.1 % (11.6-15.6) 12/09/16 06:30 Plt Count 157 K/MM3 (134-434) 12/09/16 06:30 MPV 7.7 fl (7.5-11.1) 12/09/16 06:30 Neutrophils % 51.9 % (42.8-82.8) D 12/09/16 06:30 Lymphocytes % 34.7 % (8-40) D 12/09/16 06:30 Monocytes % 11.0 % (3.8-10.2) H 12/09/16 06:30 Eosinophils % 1.8 % (0-4.5) D 12/09/16 06:30 Basophils % 0.6 % (0-2.0) 12/09/16 06:30 Assessment/Plan Status post repeat Stable Ambulation Analgesia as needed Continue routine post op care
[2016-12-09] MEDS: SENNOSIDES/DOCUSATE COMBO (SENNA PLUS) TABLET (UD) PO PRN (20:23)
--- NOTE | 2016-12-10 07:22 | DS ---
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: Vital Signs Temperature 97.8 F 12/09/16 22:00 Pulse Rate 58 L 12/09/16 22:00 Respiratory Rate 20 12/09/16 22:00 Blood Pressure 128/55 12/09/16 22:00 O2 Sat by Pulse Oximetry (%) 100 12/07/16 09:00 Constitutional: Yes: Well Nourished, No Distress, Calm Eyes: Yes: WNL, Conjunctiva Clear, EOM Intact HENT: Yes: WNL, Atraumatic, Normocephalic Neck: Yes: WNL, Supple, Trachea Midline Cardiovascular: Yes: WNL, Regular Rate and Rhythm Respiratory: Yes: WNL, Regular, CTA Bilaterally Gastrointestinal: Yes: WNL ...Rectal Exam: Yes: WNL Renal/: Yes: WNL ....Post : Yes: Uterus firm, Uterus non-tender, Slight lochia rubra Breast(s): Yes: WNL Musculoskeletal: Yes: WNL Extremities: Yes: WNL Edema: No Integumentary: Yes: WNL Wound/Incision: Yes: Clean/Dry, Well Approximated, Anna Intact Neurological: Yes: WNL, Alert, Oriented ...Motor Strength: WNL Psychiatric: Yes: WNL, Alert, Oriented Labs: CBC, BMP 12/09/16 06:30 Delivery - Delivery Section: Repeat, Low Flap Transverse (no complication) Type of Anesthesia: Spinal Episiotomy/Laceration: None EBL (cc): 500 Delivery, Single - Stages of Labor Date of Delivery: 12/06/16 Time of Delivery: 14:26 Time Placenta Delivered: 14:27 Placenta: Yes: Expressed - 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 Present: Yes Name: Lakesha Al Infant Gender: Female Weight: 6 lb 12 oz Position: Right, OT Total Hours ROM (Hrs/Mins): 0hrs 2min - 1 Minute Total Score: 9 5 Minutes Total Score: 9 - Feeding Plan Initial Plan: Elected not to breastfeed exclusively throughout hospitalization Discharge Summary Reason For Visit: C/SECTION Current Active Problems with 39 completed weeks gestation (Acute) Previous section complicating (Acute) Procedures: Principal: repeat LST c/s Condition: Good - Instructions Diet, Activity, Other Instructions: regular diet, follow up [facility] care 1 week Referrals: Glenroy Duggan MD [Staff Physician] - - Home Medications Comprehensive Discharge Medication List: Ambulatory Orders Ibuprofen [Motrin -] 600 mg PO Q4H PRN #0 tablet 01/17/13 Ibuprofen [Motrin -] 600 mg PO TID PRN #12 tablet 07/30/14 Kev333/Iron Fumarate/FA/Dss [ 19 Tablet] 1 each PO DAILY 06/24/16
[2016-12-10] MEDS: FERROUS SO4 325 MG TABLET (FP) PO SCH (09:33)
[2016-12-10] MEDS: PRENATAL VITAMINS W/ FOLIC ACID TABLET (FP) PO SCH (09:33)
[2016-12-10] MEDS: IBUPROFEN 600 MG TABLET (FP) PO PRN (09:33)
[2016-12-10] MEDS: ACETAMINOPHEN 325 MG TABLET (FP) PO PRN (09:34)
[2016-12-10] MEDS: ENOXAPARIN NA (PORCINE) 40 MG/0.4 ML DISP.SYRIN SQ SCH (09:35)
[2016-12-10 10:31] VITALS: BP 139/67; PULSE 74; TEMP 98.1
== END 2016-12-10 11:13 | disposition home or self-care (01) | DRG 540 ==
LOC: JLDR 12:50 → J3W 16:03
PROVIDERS: ADMIT Obstetrics & Gynecology; ATTEND Obstetrics & Gynecology
PROC: 10D00Z1 Extraction of Products of Conception, Low, Open Approach (ICD-10-PCS; principal; 2016-12-06)
DX: O34.211 Maternal care for low transverse scar from previous cesarean delivery (principal); N85.8 Other specified noninflammatory disorders of uterus; Z3A.39 39 weeks gestation of pregnancy; Z37.0 Single live birth
CPT/HCPCS: 36415; 85025; 88307-TC

== ENCOUNTER 2017-11-25 08:50 | Emergency (ER) | payer OTHER ==
[2017-11-25 09:11] VITALS: BP 118/64; PULSE 94; TEMP 98.8; BMI 23.3
[2017-11-25] MEDS ORDERED: IBUPROFEN 100 MG/5 ML UNIT DOSE CUPS PO ONE (09:31)
[2017-11-25] MEDS ORDERED: DEXAMETHASONE LIQUID 0.5 MG/5 ML 240 ML BULK BOTTLE PO ONE (09:31)
--- NOTE | 2017-11-25 09:34 | PDOC ---
History of Present Illness - General Chief Complaint: Sore Throat Stated Complaint: INFECTION IN THROAT Time Seen by Provider: 11/25/17 09:17 History Source: Patient Exam Limitations: No Limitations - History of Present Illness Initial Comments: 11/25/17 09:47 Pt is a 27 y/o F who presents with two days of sore throat and tooth ache. Pt states she is supposed to have her L lower wisdom tooth removed, but has yet to get it done. She feels as if it is infected and the pain is spreading to her throat. States that it hurts to swallow. Denies fevers, chills, runny nose, cough, SOB, chest pain, n/v/d. Past History - Travel Traveled outside of the country in the last 30 days: No Close contact w/someone who was outside of country & ill: No - Past Medical History Allergies/Adverse Reactions: Allergies Allergy/AdvReac Type Severity Reaction Status Date / Time No Known Drug Allergies Allergy Verified 11/25/17 09:08 Home Medications: Ambulatory Orders Amoxicillin - [Amoxicillin 500mg Capsule -] 500 mg PO BID #14 capsule 11/25/17 Anemia: No Asthma: No Cancer: No Cardiac Disorders: No CVA: No COPD: No CHF: No Dementia: No Diabetes: No GI Disorders: Yes (DIVERTICULOSIS) Disorders: No HTN: No Hypercholesterolemia: No Liver Disease: No Seizures: No Thyroid Disease: No - Surgical History Abdominal Surgery: Yes Appendectomy: No Cardiac Surgery: No Cholecystectomy: No Lung Surgery: No Neurologic Surgery: No Orthopedic Surgery: No - Reproductive History (#): 2 Para: 1 - Immunization History Immunization Up to Date: Yes - Suicide/Smoking/Psychosocial Hx Smoking Status: Yes Smoking History: Current every day smoker Have you smoked in the past 12 months: No Number of Cigarettes Smoked Daily: 20 If you are a former smoker, when did you quit?: 3 DAYS AGO Information on smoking cessation initiated: Yes 'Breaking Loose' booklet given: 11/25/17 Hx Alcohol Use: No Drug/Substance Use Hx: No Substance Use Type: None Hx Substance Use Treatment: No Review of Systems - Review of Systems Able to Perform ROS?: Yes Comments:: 11/25/17 09:43 CONSTITUTIONAL: Absent: fever, chills, diaphoresis, generalized weakness, malaise, loss of appetite HEENT: Absent: rhinorrhea, nasal congestion, throat pain, throat swelling, difficulty swallowing, mouth swelling, ear pain, eye pain, visual Changes CARDIOVASCULAR: Absent: chest pain, loss of consciousness, palpitations, irregular heart rate, peripheral edema RESPIRATORY: Absent: cough, shortness of breath, dyspnea with exertion, orthopnea, wheezing, stridor, hemoptysis GASTROINTESTINAL: Absent: abdominal pain, abdominal distension, nausea, vomiting, diarrhea, constipation, melena, hematochezia GENITOURINARY: Absent: dysuria, frequency, urgency, hesitancy, hematuria, flank pain, genital pain MUSCULOSKELETAL: Absent: myalgia, arthralgia, joint swelling SKIN: Absent: rash, itching, pallor HEMATOLOGIC/IMMUNOLOGIC: Absent: easy bleeding, easy bruising, lymphadenopathy, frequent infections ENDOCRINE: Absent: unexplained weight gain, unexplained weight loss, heat intolerance, cold intolerance NEUROLOGIC: Absent: headache, focal weakness or paresthesias, dizziness, unsteady gait, seizure, mental status changes, bladder or bowel incontinence PSYCHIATRIC: Absent: anxiety, depression, suicidal or homicidal ideation, hallucinations. Is the patient limited Green[place]ic proficient: No *Physical Exam - Vital Signs Last Vital Signs Temp Pulse Resp BP Pulse Ox 98.8 F 94 H 18 118/64 99 11/25/17 09:08 11/25/17 09:08 11/25/17 09:08 11/25/17 09:08 11/25/17 09:08 - Physical Exam Comments: 11/25/17 09:44 GENERAL: Well developed, well nourished. Awake and alert. No acute distress. HEENT: L lower wisdom tooth with erythema and edema to the base of the tooth. Throat is with erythmatous tonsils and exudate. Uvula midline. Normocephalic, atraumatic. PERRLA, EOMI. No conjunctival pallor. Sclera are non-icteric. Moist mucous membranes. NECK: Supple. Full ROM. No JVD. Carotid pulses 2+ and symmetric, without bruits. No thyromegaly. (+) LAD to the L and R anterior cervical chains. EXTREMITIES: No cyanosis. No clubbing. No edema. No calf tenderness. SKIN: Warm and dry. Normal capillary refill. No rashes. No jaundice. NEUROLOGICAL: Alert, awake, appropriate. Cranial nerves 2-12 intact. No deficits to light touch and temperature in face, upper extremities and lower extremities. No motor deficits in the in face, upper extremities and lower extremities. Normoreflexic in the upper and lower extremities. Normal speech. Toes are down- going bilaterally. Gait is normal without ataxia. PSYCHIATRIC: Cooperative. Good eye contact. Appropriate mood and affect. Medical Decision Making - Medical Decision Making 11/25/17 09:50 Pt is a 27 y/o F who presents with two days of sore throat and tooth ache. -Pt with infected L lower wisdom tooth -Pt also with erythematous and exudative tonsils. (+) LAD -Will treat at this time for tooth infection. Given throat symptoms, possible strep throat -Will treat with motrin and prednisone at this time. -Given tooth infection, will treat with amoxicillin. Defer strep test at this time -Pt to follow up with her dentist today -DC home -I discussed the physical exam findings, ancillary test results and final diagnoses with the patient. I answered all of the patient's questions. The patient was satisfied with the care received and felt comfortable with the discharge plan and treatment plan. The Patient agrees to follow up with the primary care physician/specialist within 24-72 hours. Return precautions were given. *DC/Admit/Observation/Transfer Diagnosis at time of Disposition: Tooth infection Pharyngitis Qualifiers: Pharyngitis/tonsillitis etiology: unspecified etiology Qualified Code(s): J02.9 - Acute pharyngitis, unspecified - Discharge Dispostion Disposition: HOME Condition at time of disposition: Stable Decision to Admit order: No - Prescriptions Prescriptions: Amoxicillin - [Amoxicillin 500mg Capsule -] 500 mg PO BID #14 capsule - Referrals Referrals: Sg Nichols MD [Staff Physician] - - Patient Instructions Printed Discharge Instructions: DI for Strep Throat, DI for Tooth Decay Additional Instructions: You have strep throat. This is a bacterial infection. Please take the amoxicillin 500 mg twice a day for one week. Please finish the prescription even if you feel better. Amoxicillin will also treat the tooth infection. You may take Motrin 800 mg every 8 hours as needed for pain or fever. Warm water gargles and cough drops and just may also help her symptoms. Please throw way your toothbrush 3 days into treatment to prevent reinfection. Please follow up with your primary care doctor and your dentist next week. Return to emergency department if you have worsening pain, difficulty swallowing , changes in your voice, lightheadedness, dizziness, or any changes in your symptoms. - Post Discharge Activity Forms/Work/School Notes: Back to Work
[2017-11-25] MEDS ORDERED: IBUPROFEN 600 MG TABLET (FP) PO ONE (09:39)
[2017-11-25] MEDS ORDERED: DEXAMETHASONE SOD PHOSPHATE 10 MG/1 ML VIAL ONE (09:39)
== END 2017-11-25 10:10 | disposition home or self-care (01) ==
LOC: JERFT 08:50
DX: J02.9 Acute pharyngitis, unspecified (principal); K08.89 Other specified disorders of teeth and supporting structures
CPT/HCPCS: 99281-25

== ENCOUNTER 2018-11-17 10:45 | Emergency (ER) | payer OTHER ==
[2018-11-17 11:04] VITALS: BP 140/70; PULSE 60; TEMP 98.6; BMI 20.3
[2018-11-17] MEDS ORDERED: ACETAMINOPHEN 1000 MG/100 ML VIAL (NON FORMULARY) IVPB ONE (11:40)
[2018-11-17] MEDS ORDERED: ONDANSETRON 4 MG/2 ML VIAL IVPUSH ONE (11:40)
[2018-11-17] MEDS ORDERED: SODIUM CHLORIDE 1,000 ML IV STA (11:41)
--- NOTE | 2018-11-17 11:53 | PDOC ---
History of Present Illness - General Chief Complaint: Nausea/Vomiting Stated Complaint: VOMITING/DIARRHEA Time Seen by Provider: 11/17/18 11:34 History Source: Patient Exam Limitations: No Limitations - History of Present Illness Initial Comments: 11/17/18 11:42 Ms Tobar is a 28 yo F who presents to the ER with a complaint of nausea, vomiting and diarrhea Pt reports that her symptoms began last night At that time, she noted that she was unable to fall asleep because she could not get comfortable This morning, she noted LLQ pain which she was unable to describe, she told me that her pain is "severe" She reports some low back pain She denies fevers but does note chills She has had 2 episodes of non bloody, non bilious emesis She has also had 2 episodes of non bloody, non mucoid diarrhea Pt was tolerating po yesterday - soup only Pt then tells me that she has had this pain intermittently for the past 4 days She has used her grand mother's pain pills (unable to give me the name) for this pain (which helped) She last used this medication 2 or 3 days ago She tells me that she has had diverticulitis, last episode was 4 years ago. She reports she got it from her mother PMH: diverticulitis PSH: c section x 2 Meds: denies ALL: NKDA Social: (+) tobacco use, denies drug or ETOH abuse ROS: GENERAL/CONSTITUTIONAL: Yes: chills, loss of appetite No: fever, weakness, HEAD, EYES, EARS, NOSE AND THROAT: No: change in vision, ear pain, CARDIOVASCULAR: No: chest pain, lightheadedness, palpitations RESPIRATORY: No: cough, shortness of breath, wheezing GASTROINTESTINAL: Yes: nausea, vomiting, abdominal pain, diarrhea GENITOURINARY: No: dysuria, hematuria, frequency, urgency, flank pain. MUSCULOSKELETAL: Yes: lower back pain SKIN: No: lesions, pallor, rash or easy bruising. NEUROLOGIC: No: headache, vertigo, paresthesias, weakness PE: GENERAL: The patient is in no acute distress. HEAD: Normal EYES: PERRLA, EOMI, sclera anicteric, conjunctiva clear. ENT: Ears normal, nares patent, oropharynx clear without exudates. Moist mucous membranes. NECK: Normal range of motion, supple LUNGS: Breath sounds equal, clear to auscultation bilaterally. No wheezes, and no crackles. HEART:Regular rate and rhythm, normal S1 and S2 without murmur, rub or gallop. ABDOMEN: Soft, non distended, LLQ tenderness to palpation, no involuntary guarding or rebound EXTREMITIES: Normal range of motion, no edema. NEUROLOGICAL: Cranial nerves II through XII grossly intact. Normal speech. No focal neurological deficits. MUSCULOSKELETAL: no CVA tenderness SKIN: Warm, Dry, normal turgor, no rashes or lesions noted. Past History - Past Medical History Allergies/Adverse Reactions: Allergies Allergy/AdvReac Type Severity Reaction Status Date / Time No Known Drug Allergies Allergy Verified 11/17/18 11:04 Home Medications: Ambulatory Orders Amoxicillin - [Amoxicillin 500mg Capsule -] 500 mg PO BID #14 capsule 11/25/17 Anemia: No Asthma: No Cancer: No Cardiac Disorders: No CVA: No COPD: No CHF: No Dementia: No Diabetes: No GI Disorders: Yes (DIVERTICULOSIS) Disorders: No HTN: No Hypercholesterolemia: No Liver Disease: No Seizures: No Thyroid Disease: No - Surgical History Abdominal Surgery: Yes Appendectomy: No Cardiac Surgery: No Cholecystectomy: No Lung Surgery: No Neurologic Surgery: No Orthopedic Surgery: No - Reproductive History (#): 2 Para: 1 - Immunization History Immunization Up to Date: Yes - Suicide/Smoking/Psychosocial Hx Smoking Status: Yes Smoking History: Current every day smoker Have you smoked in the past 12 months: No Number of Cigarettes Smoked Daily: 20 If you are a former smoker, when did you quit?: 3 DAYS AGO Information on smoking cessation initiated: No 'Breaking Loose' booklet given: 11/25/17 Hx Alcohol Use: No Drug/Substance Use Hx: No Substance Use Type: None Hx Substance Use Treatment: No *Physical Exam - Vital Signs Last Vital Signs Temp Pulse Resp BP Pulse Ox 98.6 F 60 16 140/70 100 11/17/18 10:45 11/17/18 10:45 11/17/18 10:45 11/17/18 10:45 11/17/18 10:45 Medical Decision Making - Medical Decision Making 11/17/18 11:53 28 yo F presenting with a complaint of nausea, vomiting, diarrhea, LLQ tenderness and pain No recent travel No ill contacts Will do: Basic labs UA CT (pt has a prior h/o diverticulitis) Pt nurse has made multiple attempts to find this patient Bathrooms checked Unable to find this patient It appears she has eloped *DC/Admit/Observation/Transfer Diagnosis at time of Disposition: Eloped from emergency department - Discharge Dispostion Disposition: ELOPED - Referrals - Patient Instructions - Post Discharge Activity
[2018-11-17] MEDS ORDERED: ONDANSETRON 4 MG/2 ML VIAL ONE (13:37)
[2018-11-17] MEDS ORDERED: ACETAMINOPHEN INJECTION 100 ML IVPB ONE (13:37)
== END 2018-11-17 13:50 | disposition left against medical advice (07) ==
LOC: JER 10:45
DX: R10.32 Left lower quadrant pain (principal); R11.2 Nausea with vomiting, unspecified; R19.7 Diarrhea, unspecified
CPT/HCPCS: 99281-25

== ENCOUNTER 2021-03-27 23:47 | Inpatient (IN) | payer OTHER ==
[2021-03-28] MEDS ORDERED: BISMUTH SUBSALICYLATE 524 MG/30 ML PO PRN (03:30)
[2021-03-28] MEDS ORDERED: ONDANSETRON *ODT* 4 MG TABLET SL PRN (03:30)
[2021-03-28] MEDS ORDERED: MAG HYDROX/AL HYDROX/SIMETH 30 ML UNIT-DOSE CUP PO PRN (03:30)
[2021-03-28] MEDS ORDERED: METHOCARBAMOL 500 MG TABLET PO PRN (03:30)
[2021-03-28] MEDS ORDERED: MENTHOL/PHENOL 1 EACH UD MM PRN (03:30)
[2021-03-28] MEDS ORDERED: NICOTINE 10 MG CARTRIDGE (INHALER) IH PRN (03:30)
[2021-03-28] MEDS ORDERED: MAGNESIUM HYDROX 2400MG/30ML ORAL SUSPENSION 30 ML CUP PO PRN (03:30)
[2021-03-28] MEDS ORDERED: IBUPROFEN 400 MG TABLET (FP) PO PRN (03:30)
[2021-03-28] MEDS ORDERED: ACETAMINOPHEN 325 MG TABLET (FP) PO PRN ×2 (03:30)
[2021-03-28] MEDS ORDERED: MAGNESIUM CITRATE 300 ML BOTTLE PO PRN (03:30)
[2021-03-28 07:59] VITALS: BMI 21.9
[2021-03-28] MEDS ORDERED: PRENATAL VITAMINS W/ FOLIC ACID TABLET (FP) PO SCH (10:00)
[2021-03-28] MEDS: hydrOXYzine PAMOATE 25 MG CAPSULE (FP) PO SCH (10:43)
[2021-03-28] MEDS ORDERED: methaDONE HCL 10 MG TABLET (FOR DETOX USE ONLY) PO ONE (13:29)
[2021-03-28] MEDS ORDERED: cloNIDine HCL 0.1 MG TABLET PO PRN (13:29)
[2021-03-28] MEDS ORDERED: hydrOXYzine PAMOATE 25 MG CAPSULE (FP) PO PRN (13:30)
[2021-03-28 16:59] VITALS: BP 112/65; PULSE 82; TEMP 97.1
[2021-03-28] MEDS ORDERED: THIAMINE HCL 100 MG TABLET (FP) PO SCH (22:00)
[2021-03-28] MEDS ORDERED: MELATONIN 5 MG TABLETS PO SCH (22:00)
[2021-03-30] MEDS ORDERED: methaDONE HCL 10 MG TABLET (FOR DETOX USE ONLY) PO ONE (10:00)
[2021-04-01] MEDS ORDERED: methaDONE HCL 10 MG TABLET (FOR DETOX USE ONLY) PO ONE (10:00)
== END 2021-03-28 19:00 | disposition left against medical advice (07) | DRG 770 ==
LOC: YASAS 23:47 → Y6N 03-28 07:15 → UNDOADMIN 03-28 07:15 → UNDODISIN 03-28 19:00
PROVIDERS: ADMIT Allergy & Immunology; ATTEND Allergy & Immunology
PROC: HZ2ZZZZ Detoxification Services for Substance Abuse Treatment (ICD-10-PCS; principal; 2021-03-28)
DX: F11.23 Opioid dependence with withdrawal (principal); F14.90 Cocaine use, unspecified, uncomplicated; F17.210 Nicotine dependence, cigarettes, uncomplicated; F19.24 Other psychoactive substance dependence with psychoactive substance-induced mood disorder; K59.03 Drug induced constipation; K21.9 Gastro-esophageal reflux disease without esophagitis; Z87.19 Personal history of other diseases of the digestive system
CPT/HCPCS: C9803; U0003; U0005

== ENCOUNTER 2021-03-30 23:31 | Inpatient (IN) | payer OTHER ==
[2021-03-30 23:59] VITALS: BP 128/83; PULSE 91; TEMP 98.1; BMI 20.3
[2021-03-31] MEDS ORDERED: DICYCLOMINE HCL 10 MG CAPSULE PO PRN (00:01)
[2021-03-31] MEDS ORDERED: NALOXONE (NARCAN) HCL 4 MG/0.1 ML SPRAY NS PRN (00:01)
[2021-03-31] MEDS ORDERED: methaDONE HCL 10 MG TABLET (FOR DETOX USE ONLY) PO ONE ×2 (00:01→10:00)
[2021-03-31] MEDS ORDERED: MAGNESIUM CITRATE 300 ML BOTTLE PO PRN (00:01)
[2021-03-31] MEDS ORDERED: ACETAMINOPHEN 325 MG TABLET (FP) PO PRN ×2 (00:01)
[2021-03-31] MEDS ORDERED: METHOCARBAMOL 500 MG TABLET PO PRN (00:01)
[2021-03-31] MEDS ORDERED: MAG HYDROX/AL HYDROX/SIMETH 30 ML UNIT-DOSE CUP PO PRN (00:01)
[2021-03-31] MEDS ORDERED: guaiFENesin 200 MG/10 ML 10 ML UNIT-DOSE CUPS PO PRN (00:01)
[2021-03-31] MEDS ORDERED: IBUPROFEN 400 MG TABLET (FP) PO PRN (00:01)
[2021-03-31] MEDS ORDERED: P-EPHED 60MG/TRIPROLIDI 2.5MG TABLET PO PRN (00:01)
[2021-03-31] MEDS ORDERED: cloNIDine HCL 0.1 MG TABLET PO PRN (00:01)
[2021-03-31] MEDS ORDERED: MENTHOL/PHENOL 1 EACH UD MM PRN (00:01)
[2021-03-31] MEDS ORDERED: NICOTINE POLACRILEX 2 MG GUM BUC PRN (00:01)
[2021-03-31] MEDS ORDERED: MAGNESIUM HYDROX 2400MG/30ML ORAL SUSPENSION 30 ML CUP PO PRN (00:01)
[2021-03-31] MEDS ORDERED: BISMUTH SUBSALICYLATE 524 MG/30 ML PO PRN (00:01)
[2021-03-31] MEDS ORDERED: NALOXONE HCL 0.4 MG/ML VIAL IM PRN (00:01)
[2021-03-31] MEDS ORDERED: methaDONE HCL 10 MG TABLET (FOR DETOX USE ONLY) ONE (01:12)
[2021-03-31] MEDS ORDERED: NICOTINE 21 MG/24 HOURS TOPICAL PATCH TD SCH (10:00)
[2021-03-31] MEDS ORDERED: PRENATAL VITAMINS W/ FOLIC ACID TABLET (FP) PO SCH (10:00)
[2021-03-31] MEDS ORDERED: BACITRACIN 0.9 GM PACKET TP SCH (10:00)
[2021-03-31] MEDS ORDERED: THIAMINE HCL 100 MG TABLET (FP) PO SCH (22:00)
[2021-03-31] MEDS ORDERED: DOCUSATE SODIUM 100 MG CAPSULE (FP) PO SCH (22:00)
[2021-03-31] MEDS ORDERED: MELATONIN 5 MG TABLETS PO SCH (22:00)
[2021-04-02] MEDS ORDERED: methaDONE HCL 10 MG TABLET (FOR DETOX USE ONLY) PO ONE (10:00)
[2021-04-04] MEDS ORDERED: methaDONE HCL 10 MG TABLET (FOR DETOX USE ONLY) PO ONE (10:00)
== END 2021-03-31 03:20 | disposition left against medical advice (07) | DRG 770 ==
LOC: YASAS 23:31 → Y3N 03-31 00:56
PROVIDERS: ADMIT Allergy & Immunology; ATTEND Allergy & Immunology
PROC: HZ2ZZZZ Detoxification Services for Substance Abuse Treatment (ICD-10-PCS; principal; 2021-03-31)
DX: F11.23 Opioid dependence with withdrawal (principal); F14.10 Cocaine abuse, uncomplicated; F17.210 Nicotine dependence, cigarettes, uncomplicated; F19.24 Other psychoactive substance dependence with psychoactive substance-induced mood disorder; K21.9 Gastro-esophageal reflux disease without esophagitis; K59.03 Drug induced constipation; Z87.19 Personal history of other diseases of the digestive system
CPT/HCPCS: 81025; 93005; 93010; C9803; U0003; U0005

== ENCOUNTER 2021-12-27 19:35 | Inpatient (IN) | payer OTHER ==
[2021-12-27 20:15] VITALS: BMI 22.4
[2021-12-27] MEDS ORDERED: NALOXONE HCL (KLOXXADO) 8 MG SPRAY NS PRN (20:42)
[2021-12-27] MEDS ORDERED: IBUPROFEN 400 MG TABLET (FP) PO PRN (20:42)
[2021-12-27] MEDS ORDERED: cloNIDine HCL 0.1 MG TABLET PO PRN (20:42)
[2021-12-27] MEDS ORDERED: BENZOCAINE/MENTHOL (CHLORASEPTIC ) LOZENGE MM PRN (20:42)
[2021-12-27] MEDS ORDERED: P-EPHED 60MG/TRIPROLIDI 2.5MG TABLET PO PRN (20:42)
[2021-12-27] MEDS ORDERED: MAGNESIUM HYDROX 2400MG/30ML ORAL SUSPENSION 30 ML CUP PO PRN (20:42)
[2021-12-27] MEDS ORDERED: DICYCLOMINE HCL 10 MG CAPSULE PO PRN (20:42)
[2021-12-27] MEDS ORDERED: LOPERAMIDE HCL 2 MG CAPSULE PO PRN (20:42)
[2021-12-27] MEDS ORDERED: IBUPROFEN 600 MG TABLET (FP) PO PRN (20:42)
[2021-12-27] MEDS ORDERED: MAG HYDROX/AL HYDROX/SIMETH 30 ML UNIT-DOSE CUP PO PRN (20:42)
[2021-12-27] MEDS ORDERED: guaiFENesin 200 MG/10 ML 10 ML UNIT-DOSE CUPS PO PRN (20:42)
[2021-12-27] MEDS ORDERED: NICOTINE POLACRILEX 2 MG GUM BUC PRN (20:42)
[2021-12-27] MEDS ORDERED: ONDANSETRON *ODT* 4 MG TABLET SL PRN (20:42)
[2021-12-27] MEDS ORDERED: BISMUTH SUBSALICYLATE 524 MG/30 ML PO PRN (20:42)
[2021-12-27] MEDS ORDERED: MAGNESIUM CITRATE 300 ML BOTTLE PO PRN (20:42)
[2021-12-27] MEDS ORDERED: ACETAMINOPHEN 325 MG TABLET (FP) PO PRN (20:42)
[2021-12-27] MEDS ORDERED: methaDONE HCL 10 MG TABLET (FOR DETOX USE ONLY) PO ONE (20:42)
[2021-12-27] MEDS ORDERED: methaDONE HCL 10 MG TABLET (FOR DETOX USE ONLY) ONE (21:46)
[2021-12-27] MEDS ORDERED: MELATONIN 5 MG TABLETS PO SCH (22:00)
[2021-12-27] MEDS: THIAMINE HCL 100 MG TABLET (FP) PO SCH (22:58)
[2021-12-27] MEDS: METHOCARBAMOL 500 MG TABLET PO PRN (22:59)
[2021-12-27] MEDS: diazePAM 5 MG TABLET PO PRN (22:59)
[2021-12-28] MEDS: diazePAM 5 MG TABLET PO PRN ×3 (10:20→22:11)
[2021-12-28] MEDS: METHOCARBAMOL 500 MG TABLET PO PRN ×2 (10:20→22:14)
[2021-12-28] MEDS: PRENATAL VITAMINS W/ FOLIC ACID TABLET (FP) PO SCH (10:25)
[2021-12-28] MEDS: NICOTINE 21 MG/24 HOURS TOPICAL PATCH TD SCH (10:25)
[2021-12-28 13:29] LABS: ALBUMIN 3.4 g/dl (3.4-5.0)
[2021-12-28 13:32] LABS: CREATININE 0.7 mg/dL (0.55-1.3)
[2021-12-28 13:34] LABS: BILIRUBIN,TOTAL 0.2 mg/dL (0.2-1); TOT PROT 5.9 g/dl (6.4-8.2)
[2021-12-28 13:37] LABS: HEMATOCRIT 33.1 % (32.4-45.2); HEMOGLOBIN 10.6 GM/dL (10.7-15.3); MCH 27.7 pg (25.7-33.7); MCHC 32.2 g/dl (32.0-36.0); MEAN CELL VOLUME 86.1 fl (80-96); MEAN PLT VOLUME 7.6 fl (7.5-11.1); PLATELET COUNT 224 10^3/uL (134-434); RBC 3.84 M/mm3 (3.60-5.2); RDW 13.4 % (11.6-15.6); WHITE BLOOD COUNT 5.1 K/mm3 (4.0-10.0)
[2021-12-28] MEDS: MELATONIN 5 MG TABLETS PO SCH (22:11)
[2021-12-28] MEDS: THIAMINE HCL 100 MG TABLET (FP) PO SCH (22:11)
[2021-12-29] MEDS ORDERED: methaDONE HCL 10 MG TABLET (FOR DETOX USE ONLY) PO ONE (10:00)
[2021-12-29] MEDS: diazePAM 5 MG TABLET PO PRN (10:12)
[2021-12-29] MEDS: PRENATAL VITAMINS W/ FOLIC ACID TABLET (FP) PO SCH (10:13)
[2021-12-29] MEDS: METHOCARBAMOL 500 MG TABLET PO PRN ×2 (10:13→18:26)
[2021-12-29] MEDS: ACETAMINOPHEN 325 MG TABLET (FP) PO PRN (10:13)
[2021-12-29] MEDS: NICOTINE 21 MG/24 HOURS TOPICAL PATCH TD SCH (10:14)
[2021-12-29] MEDS: MELATONIN 5 MG TABLETS PO SCH (22:07)
[2021-12-29] MEDS: THIAMINE HCL 100 MG TABLET (FP) PO SCH (22:08)
[2021-12-29] MEDS ORDERED: NICOTINE 10 MG CARTRIDGE (INHALER) IH PRN (22:11)
[2021-12-30] MEDS: diazePAM 5 MG TABLET PO PRN ×3 (05:44→18:31)
[2021-12-30] MEDS: METHOCARBAMOL 500 MG TABLET PO PRN ×2 (10:20→22:32)
[2021-12-30] MEDS: PRENATAL VITAMINS W/ FOLIC ACID TABLET (FP) PO SCH (10:20)
[2021-12-30] MEDS: ACETAMINOPHEN 325 MG TABLET (FP) PO PRN (10:22)
[2021-12-30] MEDS: NICOTINE 21 MG/24 HOURS TOPICAL PATCH TD SCH (11:14)
[2021-12-30] MEDS: MELATONIN 5 MG TABLETS PO SCH (22:31)
[2021-12-30] MEDS: THIAMINE HCL 100 MG TABLET (FP) PO SCH (22:32)
[2021-12-31] MEDS: METHOCARBAMOL 500 MG TABLET PO PRN (06:15)
[2021-12-31 06:29] VITALS: RESP 17; TEMP 97.5
[2021-12-31] MEDS ORDERED: diazePAM 5 MG TABLET PO ONE (09:42)
[2021-12-31] MEDS ORDERED: methaDONE HCL 10 MG TABLET (FOR DETOX USE ONLY) PO ONE (10:00)
[2021-12-31 10:26] VITALS: BP 126/81; PULSE 85
[2021-12-31] MEDS: PRENATAL VITAMINS W/ FOLIC ACID TABLET (FP) PO SCH (10:26)
[2021-12-31] MEDS: NICOTINE 21 MG/24 HOURS TOPICAL PATCH TD SCH (10:26)
[2021-12-31 14:24] LABS: URINE APPEARANCE CLEAR; URINE BILIRUBIN NEGATIVE (NEGATIVE); URINE COLOR YELLOW; URINE GLUCOSE (UA) NEGATIVE (NEGATIVE); URINE KETONE NEGATIVE (NEGATIVE); URINE LEUK ESTERASE NEGATIVE (NEGATIVE); URINE NITRITE NEGATIVE (NEGATIVE); URINE PROTEIN NEGATIVE (NEGATIVE); URINE UROBILINOGEN 0.2 mg/dL (0.2-1.0)
== END 2021-12-31 12:30 | disposition home or self-care (01) | DRG 773 ==
LOC: YASAS 19:35 → Y6N 21:26
PROVIDERS: ADMIT Allergy & Immunology; ATTEND Surgery
PROC: HZ2ZZZZ Detoxification Services for Substance Abuse Treatment (ICD-10-PCS; principal; 2021-12-27)
DX: F11.23 Opioid dependence with withdrawal (principal); F17.210 Nicotine dependence, cigarettes, uncomplicated; F19.282 Other psychoactive substance dependence with psychoactive substance-induced sleep disorder; F19.24 Other psychoactive substance dependence with psychoactive substance-induced mood disorder; K21.9 Gastro-esophageal reflux disease without esophagitis; K57.30 Diverticulosis of large intestine without perforation or abscess without bleeding; Z87.19 Personal history of other diseases of the digestive system; Z28.310 Unvaccinated for COVID-19; Z28.9 Immunization not carried out for unspecified reason
CPT/HCPCS: 36415; 80053; 81003; 81025; 85027; 86780; 87811; C9803-CS; U0003; U0005

== ENCOUNTER 2022-11-24 16:56 | Emergency (ER) | payer OTHER ==
[2022-11-24 17:10] VITALS: BP 110/73; PULSE 64; RESP 17; TEMP 98.1; BMI 21.7
[2022-11-24] MEDS ORDERED: SODIUM CHLORIDE 0.9% 500 ML INFUS.BAG IV ONE (18:22)
[2022-11-24] MEDS ORDERED: ACETAMINOPHEN 500 MG TABLET (FP) PO ONE (18:22)
[2022-11-24] MEDS ORDERED: ONDANSETRON 4 MG/2 ML VIAL IVPUSH ONE (18:22)
[2022-11-24] MEDS ORDERED: ACETAMINOPHEN 500 MG TABLET (FP) ONE (18:37)
[2022-11-24] MEDS ORDERED: ONDANSETRON 4 MG TABLET PO ONE ×2 (18:37→18:39)
[2022-11-24 19:12] LABS: BASO % 0.7 % (0-2.0); EOS % 1.7 % (0-4.5); HEMOGLOBIN 11.7 GM/dL (10.7-15.3); LYMPH % 24.2 % (8-40); MCH 27.5 pg (25.7-33.7); MCHC 32.5 g/dl (32.0-36.0); MEAN CELL VOLUME 84.6 fl (80-96); MEAN PLT VOLUME 7.2 fl (7.5-11.1); MONO % 8.5 % (3.8-10.2); NEUT % 64.9 % (42.8-82.8); PLATELET COUNT 249 10^3/uL (134-434); RBC 4.25 M/mm3 (3.60-5.2); RDW 14.1 % (11.6-15.6); WHITE BLOOD COUNT 7.2 K/mm3 (4.0-10.0)
[2022-11-24 19:19] LABS: EPI CELLS >36 /uL (0-25.1); HCG,QUALITATIVE URINE Negative; HYALINE CASTS 0 /uL (0-3.1); PH,URINE 7.5 (5.0-8.0); URINE APPEARANCE CLOUDY; URINE BACTERIA 829 /uL (0-1359); URINE BILIRUBIN NEGATIVE (NEGATIVE); URINE COLOR YELLOW; URINE GLUCOSE (UA) NEGATIVE (NEGATIVE); URINE KETONE NEGATIVE (NEGATIVE); URINE LEUK ESTERASE TRACE (NEGATIVE); URINE NITRITE NEGATIVE (NEGATIVE); URINE PROTEIN NEGATIVE (NEGATIVE); URINE RBC 4 /uL (0-23.9); URINE UROBILINOGEN 0.2 mg/dL (0.2-1.0); URINE WBC 11 /uL (0-25.8)
[2022-11-24 19:35] LABS: CHLORIDE 105 mmol/L (98-107); SODIUM 137 mmol/L (136-145)
[2022-11-24 19:38] LABS: CALCIUM 8.6 mg/dL (8.5-10.1); GLUCOSE,RANDOM 91 mg/dL (74-106); LIPASE 45 U/L (73-393)
[2022-11-24 19:39] LABS: ALBUMIN 3.5 g/dl (3.4-5.0); BLOOD UREA NITROGEN 10.8 mg/dL (7-18); CO2 31 mmol/L (21-32)
[2022-11-24 19:41] LABS: CREATININE 0.6 mg/dL (0.55-1.3); SGOT/AST 45 U/L (15-37); SGPT/ALT 24 U/L (13-61)
[2022-11-24 19:43] LABS: BILIRUBIN,TOTAL 0.6 mg/dL (0.2-1); TOT PROT 6.9 g/dl (6.4-8.2)
[2022-11-24 19:44] LABS: ALK PHOS 80 U/L (45-117)
[2022-11-24 19:50] LABS: ANION GAP 1 MMOL/L (8-16); POTASSIUM 7.4 mmol/L (3.5-5.1)
[2022-11-24 20:46] LABS: POTASSIUM 4.4 mmol/L (3.5-5.1)
[2022-11-24 20:49] LABS: BLOOD UREA NITROGEN 10.2 mg/dL (7-18)
[2022-11-24 20:52] LABS: CREATININE 0.6 mg/dL (0.55-1.3)
[2022-11-24] MEDS ORDERED: CEPHALEXIN MONOHYDRATE 500 MG CAPSULE (UD) PO ONE (20:55)
[2022-11-24] MEDS ORDERED: CEPHALEXIN MONOHYDRATE 500 MG CAPSULE (UD) ONE (21:20)
== END 2022-11-24 21:27 | disposition home or self-care (01) ==
LOC: JER 16:56
DX: R11.2 Nausea with vomiting, unspecified (principal); R35.0 Frequency of micturition; R10.30 Lower abdominal pain, unspecified; N39.0 Urinary tract infection, site not specified
CPT/HCPCS: 80048; 80053; 81003; 83690; 84702; 84703; 85025; 87086; 87186; 99283-25

== ENCOUNTER 2023-10-06 12:53 | Inpatient (IN) | payer OTHER ==
[2023-10-06 13:57] VITALS: BMI 19.5
[2023-10-06] MEDS ORDERED: NICOTINE POLACRILEX 2 MG GUM BUC PRN (15:43)
[2023-10-06] MEDS ORDERED: guaiFENesin 600 MG TABLET.ER (FP) PO PRN (15:43)
[2023-10-06] MEDS ORDERED: DICYCLOMINE HCL 10 MG CAPSULE PO PRN (15:43)
[2023-10-06] MEDS ORDERED: MAG HYDROX/AL HYDROX/SIMETH 30 ML UNIT-DOSE CUP PO PRN (15:43)
[2023-10-06] MEDS ORDERED: LOPERAMIDE HCL 2 MG CAPSULE PO PRN (15:43)
[2023-10-06] MEDS ORDERED: POLYETHYLENE GLYCOL (HEALTHYLAX) 3350 17 GM PACKET PO PRN (15:43)
[2023-10-06] MEDS ORDERED: BENZONATATE 200 MG CAPSULE PO PRN (15:43)
[2023-10-06] MEDS ORDERED: ONDANSETRON *ODT* 4 MG TABLET SL PRN (15:43)
[2023-10-06] MEDS ORDERED: ACETAMINOPHEN 325 MG TABLET (FP) PO PRN (15:43)
[2023-10-06] MEDS ORDERED: NALOXONE HCL 0.4 MG/ML VIAL IM PRN (15:43)
[2023-10-06] MEDS ORDERED: BISMUTH SUBSALICYLATE 262 MG/15 ML BTL PO PRN (15:43)
[2023-10-06] MEDS ORDERED: MAGNESIUM HYDROX 2400MG/30ML ORAL SUSPENSION 30 ML CUP PO PRN (15:43)
[2023-10-06] MEDS ORDERED: IBUPROFEN 400 MG TABLET (FP) PO PRN (15:43)
[2023-10-06] MEDS ORDERED: NALOXONE (NARCAN) HCL 4 MG/0.1 ML SPRAY NS PRN (15:43)
[2023-10-06] MEDS ORDERED: BENZOCAINE/MENTHOL (CHLORASEPTIC ) LOZENGE MM PRN (15:43)
[2023-10-06] MEDS ORDERED: methaDONE HCL 10 MG TABLET (FOR DETOX USE ONLY) ONE (16:01)
[2023-10-06] MEDS: methaDONE HCL 10 MG TABLET (FOR DETOX USE ONLY) PO ONE (16:06)
[2023-10-06] MEDS: cloNIDine HCL 0.1 MG TABLET PO PRN (17:53)
[2023-10-06] MEDS: METHOCARBAMOL 500 MG TABLET PO PRN (17:53)
[2023-10-06] MEDS: hydrOXYzine PAMOATE 25 MG CAPSULE (FP) PO PRN (22:48)
[2023-10-06] MEDS: THIAMINE 100 MG TABLET PO SCH (22:48)
[2023-10-06] MEDS: IBUPROFEN 600 MG TABLET (FP) PO PRN (22:48)
[2023-10-06] MEDS: MELATONIN 5 MG TABLETS PO SCH (22:48)
[2023-10-07] MEDS: PRENATAL VITAMINS W/ FOLIC ACID TABLET (FP) PO SCH (09:31)
[2023-10-07] MEDS: NICOTINE 14 MG/24 HOURS TOPICAL PATCH TD SCH (09:31)
[2023-10-07] MEDS: methaDONE HCL 10 MG TABLET PO ONE (11:39)
[2023-10-07] MEDS ORDERED: methaDONE HCL 10 MG TABLET PO PRN (13:26)
[2023-10-07] MEDS: cloNIDine HCL 0.1 MG TABLET PO SCH (13:40)
[2023-10-07 14:27] LABS: CHLORIDE 107 mmol/L (98-107); HEMATOCRIT 30.6 % (32.4-45.2); HEMOGLOBIN 10.2 GM/dL (10.7-15.3); MCH 28.5 pg (25.7-33.7); MCHC 33.3 g/dl (32.0-36.0); MEAN CELL VOLUME 85.6 fl (80-96); MEAN PLT VOLUME 7.6 fl (7.5-11.1); PLATELET COUNT 249 10^3/uL (134-434); POTASSIUM 3.7 mmol/L (3.5-5.1); RBC 3.57 M/mm3 (3.60-5.2); RDW 14.5 % (11.6-15.6); SODIUM 142 mmol/L (136-145); WHITE BLOOD COUNT 5.3 K/mm3 (4.0-10.0)
[2023-10-07 14:29] LABS: CALCIUM 9.6 mg/dL (8.5-10.1)
[2023-10-07 14:32] LABS: ANION GAP 5 mmol/L (4-13); CO2 30 mmol/L (21-32); GLUCOSE,RANDOM 113 mg/dL (74-106)
[2023-10-07 14:33] LABS: ALBUMIN 3.3 g/dl (3.4-5.0)
[2023-10-07 14:35] LABS: CREATININE 0.7 mg/dL (0.55-1.3); SGOT/AST 12 U/L (15-37); SGPT/ALT 15 U/L (13-61)
[2023-10-07 14:37] LABS: TOT PROT 6.3 g/dl (6.4-8.2)
[2023-10-07 14:39] LABS: ALK PHOS 64 U/L (45-117)
[2023-10-07 14:45] LABS: BLOOD UREA NITROGEN 6.5 mg/dL (7-18)
[2023-10-07 14:46] LABS: BILIRUBIN,TOTAL 0.3 mg/dL (0.2-1)
[2023-10-07] MEDS: MELATONIN 5 MG TABLETS PO SCH (22:46)
[2023-10-08] MEDS: methaDONE 40 MG, methaDONE 10 MG PO ONE (09:23)
[2023-10-08] MEDS ORDERED: methaDONE HCL 10 MG TABLET (FOR DETOX USE ONLY) PO ONE (10:00)
[2023-10-08 13:27] VITALS: BP 103/60; PULSE 62; RESP 16; TEMP 98.4
[2023-10-09] MEDS ORDERED: cloNIDine HCL 0.1 MG TABLET PO PRN
[2023-10-09] MEDS ORDERED: methaDONE 40 MG, methaDONE 20 MG PO ONE (10:00)
[2023-10-10] MEDS ORDERED: methaDONE 40 MG, methaDONE 30 MG PO ONE (10:00)
[2023-10-10] MEDS ORDERED: methaDONE HCL 10 MG TABLET (FOR DETOX USE ONLY) PO ONE (10:00)
[2023-10-11] MEDS ORDERED: methaDONE HCL 40 MG DISPERSABLE TABLET PO ONE (10:00)
[2023-10-12] MEDS ORDERED: methaDONE 80 MG, methaDONE 10 MG PO ONE (10:00)
== END 2023-10-08 13:12 | disposition left against medical advice (07) | DRG 770 ==
LOC: YASAS 12:53 → Y6N 16:40
PROVIDERS: ADMIT Allergy & Immunology; ATTEND Surgery
PROC: HZ2ZZZZ Detoxification Services for Substance Abuse Treatment (ICD-10-PCS; principal; 2023-10-06)
DX: F11.23 Opioid dependence with withdrawal (principal); F14.20 Cocaine dependence, uncomplicated; F12.20 Cannabis dependence, uncomplicated; F17.210 Nicotine dependence, cigarettes, uncomplicated; F19.282 Other psychoactive substance dependence with psychoactive substance-induced sleep disorder; K21.9 Gastro-esophageal reflux disease without esophagitis; D50.9 Iron deficiency anemia, unspecified; Z87.19 Personal history of other diseases of the digestive system
CPT/HCPCS: 36415; 80053; 80305; 80307; 81025; 85027; 86780; 93005; 93010